=== PATIENT | male | born 1940 | race Caucasian/White ===

== ENCOUNTER → 2017-12-31 | Emergency (ER) | payer OTHER ==
[~2017-12-31] VITALS: Ht 175.3 cm; Wt 81.6 kg
[~2017-12-31] MED LIST: LEVALBUTER1.25 MG/3 IH; MEDROLPACK PO; METFORMIN HCL500 MG PO
== END | disposition home or self-care (01) ==
LOC: ER 12:24
DX: J44.1 Chronic obstructive pulmonary disease with (acute) exacerbation (principal)

== ENCOUNTER 2018-09-02 20:08 | Inpatient (IN) | payer OTHER ==
[~2018-09-02] VITALS: Ht 175.3 cm; Wt 62.6 kg
== END 2018-09-09 21:02 | disposition home or self-care (01) | DRG 190 ==
LOC: ER 20:08 → MEDJ 09-03 15:14
PROVIDERS: ADMIT Internal Medicine
PROC: 3E0F7GC Introduction of Other Therapeutic Substance into Respiratory Tract, Via Natural or Artificial Opening (ICD-10-PCS; 2018-09-03)
PROC: 4A033R1 Measurement of Arterial Saturation, Peripheral, Percutaneous Approach (ICD-10-PCS; 2018-09-03)
PROC: B246ZZZ Ultrasonography of Right and Left Heart (ICD-10-PCS; principal; 2018-09-06)
PROC: BW24ZZZ Computerized Tomography (CT Scan) of Chest and Abdomen (ICD-10-PCS; 2018-09-07)
DX: J44.1 Chronic obstructive pulmonary disease with (acute) exacerbation (principal); I33.9 Acute and subacute endocarditis, unspecified; I27.0 Primary pulmonary hypertension; J45.41 Moderate persistent asthma with (acute) exacerbation; R09.02 Hypoxemia; Z88.6 Allergy status to analgesic agent; Z79.4 Long term (current) use of insulin; B95.7 Other staphylococcus as the cause of diseases classified elsewhere; R31.29 Other microscopic hematuria; I51.7 Cardiomegaly; I35.1 Nonrheumatic aortic (valve) insufficiency; E09.65 Drug or chemical induced diabetes mellitus with hyperglycemia; T38.0X5A Adverse effect of glucocorticoids and synthetic analogues, initial encounter